=== PATIENT | male | born 1945 | race Caucasian/White ===

== ENCOUNTER 2019-12-15 15:51 | Emergency (ER) | payer MEDICARE, OTHER ==
[2019-12-15 16:30] VITALS: BP 175/72
--- NOTE | 2019-12-15 16:49 | UC ---
Respiratory Complaint HPI - HPI Summary HPI Summary: Pt presents c/o cough nasal congestion, malaise and c/o "strong smelling urine" that began this morning. Pt has hx of sepsis. Pt did recieve flu vaccine this season. Pt recently traveled to [facility] . Pt denies CP, sob, left arm, jaw or back pain. - History of Current Complaint Chief Complaint: UCGeneralIllness Stated Complaint: COUGH, CONGESTION, SORE THROAT Time Seen by Provider: 12/15/19 16:06 Hx Obtained From: Patient Onset/Duration: Sudden Onset, Lasting Days Timing: Constant Severity Initially: Mild Severity Currently: Mild Pain Intensity: 0 Character: Cough: Nonproductive Aggravating Factors: Exertion, Deep Breaths, Recumbent Position Alleviating Factors: Nothing Associated Signs And Symptoms: Positive: Chills, URI, Nasal Congestion - Risk Factors Pulmonary Embolism Risk Factors: Recent Travel Cardiac Risk Factors: Hypertension Pseudomonas Risk Factors: Negative Tuberculosis Risk Factors: Negative - Allergies/Home Medications Allergies/Adverse Reactions: Allergies Allergy/AdvReac Type Severity Reaction Status Date / Time morphine Allergy See Comment Verified 12/15/19 16:14 Home Medications: Home Medications Cannabidiol (Cbd) Extract [Epidiolex] 1 cap PO BID 12/15/19 [History Confirmed 12/15/19] Daytime-Nightime Cold Remedy 1 cap PO BID PRN 12/15/19 [History Confirmed ] Lisinopril/Hydrochlorothiazide [Lisinopril-Hctz 10-12.5 mg Tab] 1 each PO BID [History Confirmed 12/15/19] Metoprolol Tartrate TAB* [Lopressor TAB*] 12.5 mg PO BID 12/15/19 [History Confirmed 12/15/19] Oxybutynin TAB* [Ditropan TAB*] 5 mg PO BID 12/15/19 [History Confirmed 12/15/19 ] glipiZIDE TAB* [Glucotrol TAB*] 10 mg PO BID 12/15/19 [History Confirmed ] metFORMIN* [Glucophage 1000 MG TAB *] 1,000 mg PO BID 12/15/19 [History Confirmed 12/15/19] PMH/Surg Hx/FS Hx/Imm Hx Previously Healthy: Yes Cardiovascular History: Cardiac Disease, Hypertension - Surgical History Surgical History: Yes Surgery Procedure, Year, and Place: Prostate. Back. Neck. B/L shoulder- rotator cuff. B/L wrist-carpal tunnel. appy. R TKR. L TKR x 4 - Family History Known Family History: Positive: Cardiac Disease - Social History Occupation: Retired Lives: With Family Alcohol Use: None Substance Use Type: Prescribed Substance Use Comment - Amount & Last Used: CBD Smoking Status (MU): Never Smoked Tobacco Have You Smoked in the Last Year: No - Immunization History Vaccination Up to Date: Yes Review of Systems All Other Systems Reviewed And Are Negative: Yes Constitutional: Positive: Chills, Fatigue Skin: Positive: Negative Eyes: Positive: Negative ENT: Positive: Sinus Congestion Respiratory: Positive: Shortness Of Breath - with exertion, Cough Cardiovascular: Positive: Negative Gastrointestinal: Positive: Negative Genitourinary: Positive: Negative Motor: Positive: Negative Neurovascular: Positive: Negative Musculoskeletal: Positive: Myalgia Neurological: Positive: Other - fatigued Psychological: Positive: Negative Is Patient Immunocompromised?: No Physical Exam Triage Information Reviewed: Yes Appearance: Ill-Appearing Vital Signs: Initial Vital Signs Temp 98.4 F 12/15/19 16:23 Pulse 73 12/15/19 16:23 Resp 22 12/15/19 16:23 BP 175/72 12/15/19 16:23 Pulse Ox 98 12/15/19 16:23 Vital Signs Reviewed: Yes Eye Exam: Normal ENT: Positive: Nasal congestion Dental Exam: Normal Neck exam: Normal Respiratory: Positive: Decreased breath sounds Cardiovascular Exam: Normal Cardiovascular: Positive: RRR Musculoskeletal Exam: Normal Neurological Exam: Normal Psychological Exam: Normal Skin Exam: Normal Respiratory Course/Dx - Course Course Of Treatment: I spoke with his PCP, Dr. Annemarie Andrade, and discussed plan of care. DR. Andrade agreed and states she will c/u with pt findings at today's visit. - Differential Dx/Diagnosis Differential Diagnosis/HQI/PQRI: Bronchitis, Influenza, Lower Resp Infection Provider Diagnosis: Bronchitis, Hematuria Discharge ED - Sign-Out/Discharge Documenting (check all that apply): Patient Departure All imaging exams completed and their final reports reviewed: No Studies - Discharge Plan Condition: Stable Disposition: HOME Prescriptions: Albuterol HFA INHALER* [Ventolin HFA Inhaler*] 1 - 2 puff INH Q4H PRN #1 mdi PRN Reason: Sob/Wheezing Amoxicillin PO (*) [Amoxicillin 875 MG (*)] 875 mg PO Q12H #20 tab Benzonatate CAP* [Tessalon 100 MG CAP*] 100 - 200 mg PO Q8H PRN #30 cap PRN Reason: Cough Patient Education Materials: Acute Bronchitis (ED), Hematuria (ED) Referrals: Annemarie Andrade MD [Primary Care Provider] - As Soon As Possible Additional Instructions: Please follow up with you - Billing Disposition and Condition Condition: STABLE Disposition: Home
[2019-12-15 16:59] LABS: Influenza A Molecular Negative (Negative); Influenza B Molecular Negative (Negative)
== END 2019-12-15 17:23 | disposition home or self-care (01) ==
LOC: UCCORT 15:51
DX: R31.9 Hematuria, unspecified (principal); J40 Bronchitis, not specified as acute or chronic; I10 Essential (primary) hypertension; M79.10 Myalgia, unspecified site; Z88.5 Allergy status to narcotic agent; Z79.899 Other long term (current) drug therapy
CPT/HCPCS: 81003; 87086; 99202; G0463